=== PATIENT | female | born 1940 | race Caucasian/White ===

== ENCOUNTER → 2024-01-09 | Outpatient (CLI) | payer MEDICARE ==
--- NOTE | 2024-01-09 17:00 | CT ---
EXAMINATION TYPE: CT abdomen pelvis wo con CT DLP: 446.2 mGycm, Automated exposure control for dose reduction was used. DATE OF EXAM: 01/09/2024 4:37 PM COMPARISON: None. CLINICAL INDICATION:Female, 83 years old with history of R10.13 EPIGASTRIC PAIN; Back pain on and off x months TECHNIQUE: Axial CT abdomen pelvis wo con;Sagittal and coronal reformats were created on a separate workstation. Contrast used: mL of , (none if empty) Oral contrast used: without Oral Contrast (none if empty) FINDINGS: LOWER CHEST: Breast implants with capsular calcifications. ABDOMEN LIVER: Unremarkable GALLBLADDER AND BILE DUCTS: Gallbladder surgically absent. PANCREAS: Unremarkable. SPLEEN: Unremarkable. ADRENAL GLANDS: Unremarkable. KIDNEYS AND URETERS: Large intra-abdominal cystic structure measuring at least 21 x 14 x 23 cm. Hyper dense left renal cyst measuring up to 13 mm and 91 Hounsfield units compatible with hemorrhagic/prote inaceous cyst. No evidence of hydronephrosis or renal calculus. The ureters are unremarkable. PELVIS BLADDER: Unremarkable REPRODUCTIVE: Unremarkable. ABDOMEN & PELVIS STOMACH AND BOWEL: No evidence of bowel obstruction. Scattered colonic diverticula. PERITONEUM/RETROPERITONEUM: No evidence of pneumoperitoneum. VASCULATURE: Saccular aneurysmal dilation of the infrarenal abdominal aorta measuring up to 38 mm the proximal abdominal aorta also measures aneurysmally up to 39 mm. MUSCULOSKELETAL: No acute osseous abnormalities. Moderate disc degeneration changes are present throu ghout the thoracolumbar spine. No evidence for significant spinal canal stenosis. Right hip arthropla sty appears intact. LYMPH NODES: No gross evidence for lymphadenopathy. SOFT TISSUE/ABDOMINAL WALL: Unremarkable IMPRESSION: 1. No evidence for acute abdominal process. 2. 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 3. Infrarenal abdominal aortic aneurysm measuring up to 38 mm and suprarenal measuring up to 39 mm 4. 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 No evidence for signi ficant spinal canal stenosis. 5. Colonic diverticulosis.
== END | disposition home or self-care (01) ==
LOC: RADCTMAIN 16:01
PROVIDERS: ATTEND Family Medicine
DX: I71.43 Infrarenal abdominal aortic aneurysm, without rupture (principal); N28.1 Cyst of kidney, acquired; K57.30 Diverticulosis of large intestine without perforation or abscess without bleeding; M51.45 Schmorl's nodes, thoracolumbar region; M51.35 Other intervertebral disc degeneration, thoracolumbar region
CPT/HCPCS: 74176